=== PATIENT | male | born 1980 | race American Indian/Alaskan Native ===

== ENCOUNTER 2016-12-20 09:52 | Emergency (ER) | payer MEDICAID ==
[2016-12-20 10:19] VITALS: BP 138/86
--- NOTE | 2016-12-20 10:19 | EDM.PDOC ---
ED HPI Trauma - General Chief Complaint: Lower Extremity Injury/Pain Stated Complaint: BLOW OUT RT HIP Time Seen by Provider: 12/20/16 10:08 Source: Reports: Patient History Limitations: Reports: No limitations - History of Present Illness INITIAL COMMENTS - FREE TEXT/NARRATIVE: This 36 yo male patient reports to the ED with right hip pain. The patient reports he was walking last night when he heard a "pop" in his hip. The patient crawled up the stairs last night. This morning when he woke up, the patient reports he was feeling good. The patient reports he had 2 additional episodes of "popping" in his right hip. The patient made an appointment at [facility] for this afternoon. When he turned to use the bathroom, the patient reports his right hip "gave out" and he fell. The patient has also contacted [facility] regarding his current symptoms. The patient reports he has no way to get to [email or web address] today. The patient did drive to the ED after attempting to get a ride. The patient reports he has a history of avascular necrosis and had an operation with Dr. Klein on his right hip in August (packing). The patient has been using a cane, but also uses a walker to get around his house. Symptom Onset Date: 12/19/16 Occurred When: yesterday Occurred Where: home Method of Injury: fall, other Severity: severe Pain/Injury Location: Reports: lower extremity, right Consciousness: Reports: no loss of consciousness Associated Symptoms: Reports: no other symptoms Allergies/ADRs: Allergies strawberry Allergy (Verified 09/01/16 05:58) Rash Home Medications: Ambulatory Orders Aspirin 650 mg PO DAILY 12/20/16 [Confirmed 12/20/16] Ibuprofen 600 mg PO Q6H PRN 12/20/16 [Confirmed 12/20/16] Past Medical History - Past Surgical History Other Musculoskeletal Surgeries/Procedures:: back pain Social & Family History - Tobacco Use Smoking Status *Q: Never Smoker Second Hand Smoke Exposure: No - Caffeine Use Caffeine Use: Reports: Coffee, Tea - Recreational Drug Use Recreational Drug Use: No Review of Systems - Review of Systems Review Of Systems: ROS reveals no pertinent complaints other than HPI. Trauma Exam - Physical Exam Exam: See Below Exam Limited By: No limitations General Appearance: Reports: alert, WD/WN, severe distress Head: Reports: atraumatic, normocephalic Eyes: bilateral eye: EOMI, normal inspection, PERRL Ears: Reports: normal external exam, normal canal, hearing grossly normal, normal TMs Nose: Reports: normal inspection, normal mucousa, no blood Throat/Mouth: Reports: Normal inspection, Normal lips, Normal teeth, Normal gums , Normal oropharynx, Normal voice, No airway compromise Neck: Reports: non-tender, full range of motion, normal alignment, normal inspection Respiratory Exam: Reports: no respiratory distress, lungs clear, normal breath sounds Cardiovascular: Reports: normal peripheral pulses, regular rate, rhythm, no edema, no gallop, no JVD, no murmur, no rub GI/Abdominal: Reports: normal bowel sounds, soft, non tender, no organomegaly, no distention, no abnormal bruit, no mass (Male) Exam: Deferred Rectal (Males) Exam: Deferred Back: Reports: vertebral tenderness (chronic back pain (is going for multiple level fusions in [place] after hips heal)) Extremities: Reports: bony-point tenderness (right hip into the groin), pain with movement, unable to bear weight 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, no motor/sensory deficits, alert , normal mood/affect, oriented x 3 Skin: Reports: Normal color, Warm/dry - [place] Coma Score Best Eye Response (Kristen): (4) open spontaneously Best Verbal Response ([place]): (5) oriented Best Motor Response ([place]): (6) obeys commands [place] Total: 15 Course - Vital Signs Last Recorded V/S: Last Vital Signs Temp 35.9 C 12/20/16 10:07 Pulse 107 H 12/20/16 10:07 Resp 16 12/20/16 10:07 BP 138/86 12/20/16 10:07 Pulse Ox 96 12/20/16 10:07 - Orders/Labs/Meds Orders: Active Orders 24 hr Category Date Time Status DME for Discharge [COMM] Urgent Oth 12/20/16 12:09 Ordered Labs: Laboratory Tests 12/20/16 12/20/16 Range/Units 10:35 10:35 WBC 4.6 L (5.0-10.0) 10^3/uL RBC 4.75 (4.6-6.2) 10^6/uL Hgb 15.3 (14.0-18.0) g/dL Hct 43.0 (40.0-54.0) % MCV 90.5 (80-100) fL MCH 32.2 (27.0-34.0) pg MCHC 35.6 H (33.0-35.0) g/dL Plt Count 137 L (150-450) 10^3/uL Neut % (Auto) 51.1 (42.2-75.2) % Lymph % (Auto) 38.7 (20.5-50.1) % [place] % (Auto) 7.2 (2-8) % Eos % (Auto) 2.6 (1.0-3.0) % Baso % (Auto) 0.4 (0.0-1.0) % Sodium 134 L (135-145) mmol/L Potassium 3.9 (3.6-5.0) mmol/L Chloride 100 L (101-111) mmol/L Carbon Dioxide 25.0 (21.0-31.0) mmol/L Anion Gap 12.9 BUN 14 (7-18) mg/dL Creatinine 0.9 (0.6-1.3) mg/dL Est Cr Clr Drug Dosing 123.35 mL/min Estimated GFR (MDRD) > 60 BUN/Creatinine Ratio 15.55 Glucose 184 H (74-105) mg/dL Calcium 8.9 (8.4-10.2) mg/dl Total Bilirubin 0.7 (0.2-1.0) mg/dL AST 37 (10-42) IU/L ALT 62 H (10-60) IU/L Alkaline Phosphatase 67 (42-121) IU/L Total Protein 7.3 (6.7-8.2) g/dl Albumin 4.1 (3.2-5.5) g/dl Globulin 3.2 Albumin/Globulin Ratio 1.28 - Re-Assessments/Exams Free Text/Narrative Re-Assessment/Exam: 12/20/16 11:12 A call was placed to [facility] (spoke with Dr. Klein nurse (Martha)). She will speak with Dr. Klein and get back to us with recommendations. Departure - Departure Time of Disposition: 12:10 Disposition: Home, Self-Care 01 Condition: fair Clinical Impression: Right hip pain Instructions: Hip Pain Forms: ED Department Discharge Care Plan Goals: The patient was advised of the examination, lab and CT results during the visit. The patient's orthopedic provider (Dr. Klein) was consulted during the visit. The patient is to remain partial weight bearing and has an appointment to see Dr. Klein tomorrow (12/21/16) at 1115 at [facility]. The patient was given a set of crutches and a script for [place] () # 20 to take 1-2 by mouth every 8 hours as needed for pain. If the patient has any additional symptoms or concerns, the patient should follow-up with his primary care facility, with Dr. Klein or return to the ED. - My Orders Last 24 Hours: My Active Orders 12/20/16 12:09 DME for Discharge [COMM] Urgent - Assessment/Plan Last 24 Hours: My Active Orders 12/20/16 12:09 DME for Discharge [COMM] Urgent
[2016-12-20 11:00] LABS: CHLORIDE,CL 100 mmol/L (101-111); SODIUM,NA 134 mmol/L (135-145)
--- NOTE | 2016-12-20 12:06 | CT ---
CLINICAL HISTORY: 36-year-old male with clinical "avascular necrosis" both hips (medially left hip a nd laterally right hip) who is experiencing severe right hip pain since a fall this a.m. Significant ly, patient underwent orthopedic core decompression this right hip in August 2016 (Dr. Klein). SCAN TECHNIQUE: Volume acquisition of data from an emergency unenhanced CT scan of the pelvis and gaurang th hips obtained with patient lying supine on the Siemens multislice CT scanner [place], [place]. All data archived in the PACS system for storage, reformatting axial/sa gittal/coronal planes and study. INTERPRETATION: 1. Subtle irregularity lateral cortex right femoral head since 01 September 2016 exam and MRI exam 26 June 2016. Significance?. No other sign of right hip fracture or dislocation. 2. Cortical irregularity, some sclerosis in the right femoral head and lateral cystic lesion that wa s evident back on [address] exam. 3. New core tracks, subtle increased density in the cystic lesion laterally femoral head with tiny " break" in the cortex since august exam that may be related to trauma. No foreign bodies. CONCLUSION: Postoperative changes right hip (see comments above regarding "break" article integrity right femoral head laterally).
== END 2016-12-20 12:29 | disposition home or self-care (01) ==
LOC: DL.ED 09:52
DX: M25.551 Pain in right hip (principal)
CPT/HCPCS: 36415; 72192; 80053; 85025; 99284

== ENCOUNTER 2017-06-24 18:44 | Emergency (ER) | payer MEDICAID ==
[2017-06-24] MEDS ORDERED: Acetaminophen/HYDROcodone 325-10 MG Tab PO ONE ×2 (18:45→19:21)
[2017-06-24 19:23] VITALS: BP 148/86
--- NOTE | 2017-06-24 19:24 | EDM.PDOC ---
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 Left Hip Pain Score (Numeric/FACES): 10 - Related Data Allergies Allergy/AdvReac Type Severity Reaction Status Date / Time strawberry Allergy Rash Verified 06/24/17 19:19 Home Meds: Home Meds Aspirin 650 mg PO DAILY 12/20/16 [History] Ibuprofen 600 mg PO Q6H PRN 12/20/16 [History] Past Medical History Other Musculoskeletal History: avascular necrosis with decompression surgery, has some disks/vertebrae that need surgical fixation, waiting on referral to [facility] or [place]. - Past Surgical History Other Musculoskeletal Surgeries/Procedures:: back pain Social & Family History - Tobacco Use Smoking Status *Q: Never Smoker Second Hand Smoke Exposure: No - Caffeine Use Caffeine Use: Reports: Coffee, Tea - Recreational Drug Use Recreational Drug Use: No Review of Systems - Review of Systems Review Of Systems: ROS reveals no pertinent complaints other than HPI. ED EXAM, GENERAL - Physical Exam Exam: See Below Exam Limited By: No Limitations General Appearance: Alert, WD/WN, Moderate Distress, Other (pain) Ears: Hearing Grossly Normal Throat/Mouth: Normal Voice, No Airway Compromise Head: Atraumatic Neck: Non-Tender, Full Range of Motion Respiratory/Chest: No Respiratory Distress Cardiovascular: Regular Rate, Rhythm GI/Abdominal: Soft, Non-Tender Back Exam: Other (left hip pain, gait limited to pain) Extremities: Other (left leg tender R/P @ hip, NV wnl.) Neurological: Alert, Oriented, Normal Cognition, No Motor/Sensory Deficits Psychiatric: Other (upset) Skin Exam: Warm, Dry, Normal Color Lymphatic: No Adenopathy Course - Vital Signs Last Recorded V/S: Last Vital Signs Temp 36.6 C 06/24/17 19:19 Pulse 102 H 06/24/17 19:19 Resp 18 06/24/17 19:19 BP 148/86 H 06/24/17 19:19 Pulse Ox 99 06/24/17 19:19 - Orders/Labs/Meds Meds: Medications Discontinued Medications Generic Name Dose Route Start Last Admin Trade Name Nia PRN Reason Stop Dose Admin Hydrocodone Bitart/Acetaminophen 1 tab 06/24/17 19:21 06/24/17 19:27 [place] 325-10 Mg PO 06/24/17 19:22 1 tab ONETIME ONE Administration - Re-Assessments/Exams Free Text/Narrative Re-Assessment/Exam: 06/24/17 20:11 results discussed with pt. Departure - Departure Time of Disposition: 20:13 Disposition: Home, Self-Care 01 Condition: Good Clinical Impression: Contusion of hip - Discharge Information Instructions: Hip Pain Forms: ED Department Discharge Additional Instructions: 1) rest 2) call orthopedist in morning if still feels the same 3) return if there is any change or concern rx togo; norco x 1
[2017-06-24] MEDS ORDERED: Acetaminophen/HYDROcodone 325-10 MG Tab ONE (20:11)
== END 2017-06-24 20:20 | disposition home or self-care (01) ==
LOC: DL.ED 18:44
DX: S70.02XA Contusion of left hip, initial encounter (principal); Z98.890 Other specified postprocedural states; Z79.82 Long term (current) use of aspirin; Z91.018 Allergy to other foods; Z96.641 Presence of right artificial hip joint; W19.XXXA Unspecified fall, initial encounter
CPT/HCPCS: 72192; 99283; A9270

== ENCOUNTER 2019-09-23 06:26 | Day surgery (SDC) | payer MEDICAID ==
[~2019-09-23 06:26] MED LIST: Dextrose 5%-0.45% NaCl 1,000 ML IV SCH; Midazolam 1 MG/ML 2 ML SDV ONE; fentaNYL 100 MCG/2 ML SDV ONE
[2019-09-23 09:54] VITALS: BP 108/65; PULSE 93
--- NOTE | 2019-09-23 14:07 | OR ---
DATE: 09/23/2019 PROCEDURE: Total colonoscopy, NBI, and cold snare polypectomy. INSTRUMENTS USED: [id number] Olympus video colonoscope. PREMEDICATIONS: Provided by Anest[facility]iology Services. INDICATION: The patient with progressive constipation and rectal bleeding. Colonoscopy examination is done for detection of any polypoid lesions and removal, endoscopic hemostasis therapy if needed. DESCRIPTION OF PROCEDURE: Initial rectal exam was unremarkable. Rigid anoscopy was normal. The colonoscope was passed with ease up to the ileocecal area. Photographs were taken of the normal-appearing cecum, identified by landmarks of appendiceal orifice and double-bulged ileocecal folds. No bleeding was noted from any of the visualized areas at the commencement of the examination. The bowel preparation was found to be adequate, [place] scale 2 in all the regions. No stricture. No vascular ectasia. No large isolated ulcerations seen. No evidence of diffuse inflammatory bowel disease in the form of friability, contact bleeding, or ulcerations. In the mid descending colon, diminutive 3 mm sized benign-appearing polyp was noted, NBI views were obtained. Photographs were taken, cold snare polypectomy was done, the tissue was retrieved and sent for histopathology. No bleeding was noted in any of the visualized areas at the completion of examination. IMPRESSION: Diminutive colonic polyps. The patient tolerated the procedure well. [facility] /[id number]
== END 2019-09-23 10:03 | disposition home or self-care (01) ==
LOC: DL.ENDO 06:26
PROVIDERS: ATTEND Internal Medicine Gastroenterology
DX: K63.5 Polyp of colon (principal); K21.9 Gastro-esophageal reflux disease without esophagitis; E11.9 Type 2 diabetes mellitus without complications; E78.5 Hyperlipidemia, unspecified; M19.90 Unspecified osteoarthritis, unspecified site; E66.09 Other obesity due to excess calories; F17.210 Nicotine dependence, cigarettes, uncomplicated; Z91.018 Allergy to other foods; Z79.84 Long term (current) use of oral hypoglycemic drugs; Z79.899 Other long term (current) drug therapy; Z79.82 Long term (current) use of aspirin; Z68.33 Body mass index [BMI] 33.0-33.9, adult
CPT/HCPCS: 36415; 45385; 82565; J7042

== ENCOUNTER 2022-10-16 05:53 | Emergency (ER) | payer MEDICAID ==
[2022-10-16 06:31] VITALS: BP 161/99; PULSE 89
[2022-10-16 06:45] LABS: AMPHETAMINES,URINE NEGATIVE (NEGATIVE); BARBITURATES,URINE NEGATIVE (NEGATIVE); BENZODIAZEPINE,URINE NEGATIVE (NEGATIVE); MDMA (ECSTASY), URINE NEGATIVE (NEGATIVE); METHADONE,URINE NEGATIVE (NEGATIVE); METHAMPHETAMINES,URINE NEGATIVE (NEGATIVE); OPIATES,URINE NEGATIVE (NEGATIVE); OXYCODONE,URINE NEGATIVE (NEGATIVE); PHENCYCLIDINE,URINE NEGATIVE (NEGATIVE); TCA,URINE NEGATIVE (NEGATIVE)
[2022-10-16 06:57] LABS: ANION GAP 13.2 mEq/L (7-13); CHLORIDE,CL 104 mmol/L (98-107); SODIUM,NA 139 mmol/L (136-145)
[2022-10-16 06:58] LABS: ACETAMINOPHEN 0 ug/mL (10-30 (Therapeutic)); ESTIMATED GFR 109 mL/min (>=60)
[2022-10-16] MEDS ORDERED: Iopamidol 612 MG/ML 100 ML Bottle IVPUSH ONE (07:05)
== END 2022-10-16 08:38 | disposition home or self-care (01) ==
LOC: DL.ED 05:53
DX: A08.4 Viral intestinal infection, unspecified (principal); E78.00 Pure hypercholesterolemia, unspecified; E11.9 Type 2 diabetes mellitus without complications; M19.90 Unspecified osteoarthritis, unspecified site; E11.40 Type 2 diabetes mellitus with diabetic neuropathy, unspecified; F17.210 Nicotine dependence, cigarettes, uncomplicated; Z91.018 Allergy to other foods; Z79.82 Long term (current) use of aspirin; Z79.899 Other long term (current) drug therapy
CPT/HCPCS: 36415; 74177; 80053; 80143; 80179; 80305; 80307; 81003; 82140; 82150; 83605; 83690; 83735; 85025; 87040; 99284; Q9967

== ENCOUNTER 2023-10-21 15:16 | Emergency (ER) | payer BC, MEDICAID ==
[2023-10-21] MEDS ORDERED: Aspirin 81 MG Tab.Chew PO ONE (15:40)
[2023-10-21 16:02] LABS: BASOPHILS PERCENT AUTO 0.8 % (0.0-1.0); EOSINOPHILS PERCENT AUTO 4.9 % (1.0-3.0); HEMATOCRIT 43.4 % (40.0-54.0); HEMOGLOBIN 14.9 g/dL (14.0-18.0); LYMPHOCYTES PERCENT AUTO 30.8 % (20.5-50.1); MEAN CORPUSCULAR HEMOGLOBIN 32.4 pg (27.0-34.0); MEAN CORPUSCULAR HGB CONC 34.3 g/dL (33.0-35.0); MEAN CORPUSCULAR VOLUME 94.3 fL (80-100); MONOCYTES PERCENT AUTO 8.1 % (2-8); NEUTROPHILS PERCENT AUTO 55.4 % (42.2-75.2); PLATELET COUNT,PLT 146 10^3/uL (150-450)
[2023-10-21] MEDS ORDERED: Diltiazem 25 MG/5 ML SDV IVPUSH ONE (16:22)
[2023-10-21 16:25] LABS: A/G RATIO 1.1; ALBUMIN 3.5 g/dL (3.4-5.0); ALKALINE PHOSPHATASE 97 U/L (46-116); ANION GAP 13.9 mEq/L (7-13); BILIRUBIN TOTAL 0.3 mg/dL (0.2-1.0); BLOOD UREA NITROGEN,BUN 18 mg/dL (7-18); BUN/CREATININE RATIO 15.7 (No establ ref range); CALCIUM 8.2 mg/dL (8.5-10.1); CARBON DIOXIDE,CO2 24 mmol/L (21-32); CHLORIDE,CL 107 mmol/L (98-107); CREATININE 1.15 mg/dL (0.70-1.30); GLUCOSE RANDOM 148 mg/dL (70-99); POTASSIUM,K 3.9 mmol/L (3.5-5.1); PROTEIN TOTAL,TP 6.8 g/dL (6.4-8.2); SODIUM,NA 141 mmol/L (136-145)
[2023-10-21 16:40] LABS: ALANINE AMINOTRANSFERASE,ALT 28 U/L (16-63); ASPARTATE AMNIOTRANSFERASE,AST 6 U/L (15-37)
[2023-10-21 16:42] LABS: ESTIMATED GFR 80 mL/min (>=60)
[2023-10-21] MEDS ORDERED: Diltiazem 240 MG Cap.ER PO ONE (17:13)
[2023-10-21 17:48] VITALS: BP 142/84; PULSE 92
== END 2023-10-21 18:20 | disposition home or self-care (01) ==
LOC: DL.ED 15:16
DX: I47.10 Supraventricular tachycardia, unspecified (principal); E78.00 Pure hypercholesterolemia, unspecified; E11.9 Type 2 diabetes mellitus without complications; Z79.82 Long term (current) use of aspirin; Z79.84 Long term (current) use of oral hypoglycemic drugs; Z91.018 Allergy to other foods
CPT/HCPCS: 36415; 80053; 84443; 84484; 85025; 85379; 93005; 99285; A9270

== ENCOUNTER 2023-11-08 22:06 | Observation (INO) | payer BC ==
[2023-11-08 22:08] LABS: BASOPHILS PERCENT AUTO 0.3 % (0.0-1.0); EOSINOPHILS PERCENT AUTO 4.1 % (1.0-3.0); LYMPHOCYTES PERCENT AUTO 42.5 % (20.5-50.1); MEAN CORPUSCULAR HEMOGLOBIN 32.3 pg (27.0-34.0); MEAN CORPUSCULAR HGB CONC 34.9 g/dL (33.0-35.0); MEAN CORPUSCULAR VOLUME 92.7 fL (80-100); MONOCYTES PERCENT AUTO 9.4 % (2-8); NEUTROPHILS PERCENT AUTO 43.7 % (42.2-75.2); PLATELET COUNT,PLT 154 10^3/uL (150-450); RED BLOOD CELL COUNT 4.64 10^6/uL (4.6-6.2); WHITE BLOOD CELL COUNT,WBC 7.8 10^3/uL (5.0-10.0)
[2023-11-08 22:22] LABS: INR 1.1 (0.9-1.2)
[2023-11-08] MEDS: Sodium Chloride 0.9% 10 ML Syringe FLUSH PRN (22:22)
[2023-11-08] MEDS: Aspirin 81 MG Tab.Chew PO ONE (22:22)
[2023-11-08] MEDS: levETIRAcetam in NaCl (iso-os) 1,000 MG in Premix Bag 1 BAG IV ONE (22:22)
[2023-11-08 22:28] LABS: D-DIMER QUANTITATIVE < 100 ng/mL (0-400)
[2023-11-08 22:35] LABS: MAGNESIUM 2.2 mg/dL (1.8-2.4)
[2023-11-08] MEDS: LORazepam 2 MG/ML SDV IVPUSH ONE (22:40)
[2023-11-08 23:21] LABS: ALANINE AMINOTRANSFERASE,ALT 34 U/L (16-63); ALBUMIN 3.6 g/dL (3.4-5.0); ALKALINE PHOSPHATASE 88 U/L (46-116); ANION GAP 13.7 mEq/L (7-13); ASPARTATE AMNIOTRANSFERASE,AST < 5 U/L (15-37); BILIRUBIN TOTAL 0.3 mg/dL (0.2-1.0); BLOOD UREA NITROGEN,BUN 19 mg/dL (7-18); BUN/CREATININE RATIO 21.3 (No establ ref range); CALCIUM 8.1 mg/dL (8.5-10.1); CARBON DIOXIDE,CO2 24 mmol/L (21-32); CHLORIDE,CL 102 mmol/L (98-107); CREATININE 0.89 mg/dL (0.70-1.30); EST CRCL DRUG DOSING (CG) 102.47 mL/min; ESTIMATED GFR 108 mL/min (>=60); GLUCOSE RANDOM 149 mg/dL (70-99); POTASSIUM,K 3.7 mmol/L (3.5-5.1); PROTEIN TOTAL,TP 7.2 g/dL (6.4-8.2); SODIUM,NA 136 mmol/L (136-145)
[2023-11-08 23:29] LABS: APPEARANCE,URINE CLEAR (CLEAR); BILIRUBIN,URINE NEGATIVE (NEGATIVE); GLUCOSE,URINE NEGATIVE (NEGATIVE); KETONES,URINE NEGATIVE (NEGATIVE); LEUKOCYTE ESTERASE,URINE NEGATIVE (NEGATIVE); NITRITE,URINE NEGATIVE (NEGATIVE); OCCULT BLOOD,URINE NEGATIVE (NEGATIVE); PH,URINE 5.5 (5.0-9.0); PROTEIN,URINE NEGATIVE (NEGATIVE); UROBILINOGEN,URINE 0.2 mg/dL (0.2-1.0)
[2023-11-08 23:30] LABS: COLOR,URINE STRAW (YELLOW)
[2023-11-08 23:31] LABS: AMPHETAMINES,URINE NEGATIVE (NEGATIVE); BARBITURATES,URINE NEGATIVE (NEGATIVE); BENZODIAZEPINE,URINE NEGATIVE (NEGATIVE); MDMA (ECSTASY), URINE NEGATIVE (NEGATIVE); METHADONE,URINE NEGATIVE (NEGATIVE); METHAMPHETAMINES,URINE NEGATIVE (NEGATIVE); OPIATES,URINE NEGATIVE (NEGATIVE); OXYCODONE,URINE NEGATIVE (NEGATIVE); PHENCYCLIDINE,URINE NEGATIVE (NEGATIVE); TCA,URINE NEGATIVE (NEGATIVE)
[2023-11-08] MEDS: levETIRAcetam in NaCl (iso-os) 500 MG in Premix Bag 1 BAG IV ONE (23:50)
[2023-11-09] MEDS ORDERED: Flumazenil 0.1 MG/ML 5 ML MDV IVPUSH PRN (01:50)
[2023-11-09] MEDS ORDERED: Polyethylene Glycol 3350 Powder 17 GM Packet PO PRN (01:54)
[2023-11-09] MEDS ORDERED: Naloxone 2 MG/2 ML Syringe IVPUSH PRN (01:54)
[2023-11-09] MEDS ORDERED: Magnesium Hydroxide 400 MG/5 ML Susp 30 ML Cup PO PRN (01:54)
[2023-11-09] MEDS ORDERED: Ondansetron 4 MG/2 ML SDV IVPUSH PRN (01:54)
[2023-11-09] MEDS ORDERED: HYDROmorphone 0.5 MG/0.5 ML Syringe IVPUSH PRN (01:54)
[2023-11-09] MEDS ORDERED: Ibuprofen 400 MG Tab PO PRN (01:54)
[2023-11-09] MEDS ORDERED: Sennosides/Docusate Sodium 50-8.6 MG Tab PO PRN (01:54)
[2023-11-09] MEDS ORDERED: Albuterol/Ipratropium 3.0-0.5 MG/3 ML Neb Soln NEB PRN (01:54)
[2023-11-09] MEDS ORDERED: Metoprolol Tartrate 5 MG/5 ML SDV IVPUSH PRN (02:04)
[2023-11-09] MEDS ORDERED: hydrALAZINE 20 MG/ML SDV IVPUSH PRN (02:04)
[2023-11-09] MEDS ORDERED: LORazepam 2 MG/ML SDV IVPUSH PRN (02:04)
[2023-11-09 02:28] LABS: HEMOGLOBIN A1C 6.6 % (<5.7)
[2023-11-09] MEDS: MVI, Adult with Vitamin K 10 ML, Folic Acid 1 MG, Thiamine 100 MG in Lactated Ringers 1... IV ONE (04:30)
[2023-11-09] MEDS: Thiamine 100 MG in Sodium Chloride 0.9% 50 ML IV ONE (04:32)
[2023-11-09] MEDS: Pantoprazole 40 MG Vial IVPUSH ONE (04:32)
[2023-11-09 06:23] LABS: BASOPHILS PERCENT AUTO 0.7 % (0.0-1.0); EOSINOPHILS PERCENT AUTO 5.5 % (1.0-3.0); HEMATOCRIT 43.8 % (40.0-54.0); HEMOGLOBIN 15.1 g/dL (14.0-18.0); LYMPHOCYTES PERCENT AUTO 38.1 % (20.5-50.1); MEAN CORPUSCULAR HEMOGLOBIN 31.5 pg (27.0-34.0); MEAN CORPUSCULAR HGB CONC 34.5 g/dL (33.0-35.0); MEAN CORPUSCULAR VOLUME 91.4 fL (80-100); MONOCYTES PERCENT AUTO 10.8 % (2-8); NEUTROPHILS PERCENT AUTO 44.9 % (42.2-75.2); PLATELET COUNT,PLT 143 10^3/uL (150-450); RED BLOOD CELL COUNT 4.79 10^6/uL (4.6-6.2); WHITE BLOOD CELL COUNT,WBC 4.5 10^3/uL (5.0-10.0)
[2023-11-09 06:45] LABS: ALBUMIN 3.4 g/dL (3.4-5.0); ANION GAP 8.7 mEq/L (7-13); BILIRUBIN TOTAL 0.3 mg/dL (0.2-1.0); CALCIUM 7.9 mg/dL (8.5-10.1); CREATININE 0.79 mg/dL (0.70-1.30); EST CRCL DRUG DOSING (CG) 107.68 mL/min; POTASSIUM,K 3.7 mmol/L (3.5-5.1); PROTEIN TOTAL,TP 6.9 g/dL (6.4-8.2)
[2023-11-09] MEDS: levETIRAcetam in NaCl (iso-os) 1,500 MG in Premix Bag 1 BAG IV SCH (08:55)
[2023-11-09] MEDS: LORazepam 2 MG/ML SDV IV PRN (09:01)
[2023-11-09] MEDS: Calcium Gluconate 1 GM in Sodium Chloride 0.9% 100 ML IV ONE (18:33)
[2023-11-09] MEDS: Multivitamin Tab PO SCH (20:47)
[2023-11-09] MEDS: Folic Acid 1 MG Tab PO SCH (20:48)
[2023-11-09] MEDS: oxyCODONE 5 MG Tab PO PRN (20:48)
[2023-11-10] MEDS: Pantoprazole 40 MG Vial IVPUSH SCH (05:40)
[2023-11-10 06:35] LABS: BASOPHILS PERCENT AUTO 0.4 % (0.0-1.0); EOSINOPHILS PERCENT AUTO 5.2 % (1.0-3.0); HEMATOCRIT 42.8 % (40.0-54.0); LYMPHOCYTES PERCENT AUTO 41.7 % (20.5-50.1); MEAN CORPUSCULAR HEMOGLOBIN 32.5 pg (27.0-34.0); MEAN CORPUSCULAR VOLUME 92.6 fL (80-100); MONOCYTES PERCENT AUTO 8.6 % (2-8); NEUTROPHILS PERCENT AUTO 44.1 % (42.2-75.2); PLATELET COUNT,PLT 134 10^3/uL (150-450); RED BLOOD CELL COUNT 4.62 10^6/uL (4.6-6.2); WHITE BLOOD CELL COUNT,WBC 5.4 10^3/uL (5.0-10.0)
[2023-11-10 07:18] LABS: ALBUMIN 3.2 g/dL (3.4-5.0); BILIRUBIN TOTAL 0.4 mg/dL (0.2-1.0); BUN/CREATININE RATIO 17.6 (No establ ref range); CALCIUM 8.2 mg/dL (8.5-10.1); CREATININE 1.08 mg/dL (0.70-1.30); EST CRCL DRUG DOSING (CG) 78.77 mL/min; PROTEIN TOTAL,TP 6.8 g/dL (6.4-8.2)
[2023-11-10 07:25] LABS: A/G RATIO 0.89
[2023-11-10 08:37] VITALS: BP 121/80
[2023-11-10 10:37] VITALS: PULSE 84
[2023-11-10] MEDS ORDERED: Thiamine 100 MG Tab PO SCH (21:00)
== END 2023-11-10 10:30 | disposition home or self-care (01) ==
LOC: DL.ED 22:06 → DL.MS 11-09 00:23
PROVIDERS: ADMIT Internal Medicine; ATTEND Internal Medicine
DX: R56.9 Unspecified convulsions (principal); I10 Essential (primary) hypertension; E78.5 Hyperlipidemia, unspecified; E11.9 Type 2 diabetes mellitus without complications; F17.210 Nicotine dependence, cigarettes, uncomplicated; M19.90 Unspecified osteoarthritis, unspecified site; M54.50 Low back pain, unspecified; Z91.018 Allergy to other foods; Z79.899 Other long term (current) drug therapy
CPT/HCPCS: 36415; 71045; 80053; 80305; 80307; 81003; 82550; 83036; 83605; 83735; 84484; 85025; 85379; 85610; 93005; 93010; 94010; 94060; 94667; 94668; 94760; 96365; 96375; 99284; 99285; A9270; C9113; J0612; J1953; J2060; J3360; J3411; J3490; J7120; 96366; 96367; 96368; 96376; 99233; 99238; G0378